=== PATIENT | male | born 1995 | race Hispanic/Latino ===

== ENCOUNTER 2018-01-20 03:41 | Emergency (ER) | payer SELFPAY | END 2018-01-20 04:04 | LOC: EDH 03:41 | DX: Z02.83 Encounter for blood-alcohol and blood-drug test (principal) ==

== ENCOUNTER 2019-01-27 20:35 | Emergency (ER) | payer OTHER | END 2019-01-27 21:48 | disposition home or self-care (01) | LOC: EDH 20:35 | DX: H66.91 Otitis media, unspecified, right ear (principal); Z72.0 Tobacco use; Z91.048 Other nonmedicinal substance allergy status ==